=== PATIENT | female | born 1940 | race Caucasian/White ===

== ENCOUNTER 2023-11-14 16:58 | Emergency (ER) | payer MEDICARE, OTHER ==
[2023-11-14] MEDS: Acetaminophen 325 MG Tab PO ONE (18:50)
== END 2023-11-14 20:19 | disposition home or self-care (01) ==
LOC: JD.ED 16:58
DX: S00.83XA Contusion of other part of head, initial encounter (principal); S60.221A Contusion of right hand, initial encounter; S60.512A Abrasion of left hand, initial encounter; S50.312A Abrasion of left elbow, initial encounter; S80.212A Abrasion, left knee, initial encounter; I10 Essential (primary) hypertension; Z79.899 Other long term (current) drug therapy; Z91.041 Radiographic dye allergy status; W19.XXXA Unspecified fall, initial encounter
CPT/HCPCS: 70450; 73080; 73130; 73564; 99284; A9270; 99283